=== PATIENT | male | born 1965 | race Two or more races ===

== ENCOUNTER 2021-07-31 05:54 | Day surgery (SDC) | payer OTHER ==
[~2021-07-31 05:54] MED LIST: LOTREL 10-40 M1 EACH PO
== END 2021-07-31 11:05 | disposition home or self-care (01) ==
LOC: EDSEX 05:54 → CIR.AMB 05:54
PROVIDERS: ATTEND Orthopaedic Surgery
DX: M75.111 Incomplete rotator cuff tear or rupture of right shoulder, not specified as traumatic (principal); M75.21 Bicipital tendinitis, right shoulder; Z20.822 Contact with and (suspected) exposure to COVID-19